=== PATIENT | male | born 1970 | race African-American/Black ===

== ENCOUNTER 2025-01-13 08:34 | Outpatient (CLI) | payer BC, OTHER | END 2025-01-13 08:35 | disposition home or self-care (01) | LOC: CSHSLEEP 08:34 | PROVIDERS: ATTEND Family Medicine | DX: G47.33 Obstructive sleep apnea (adult) (pediatric) (principal); R53.83 Other fatigue; R73.03 Prediabetes; E66.9 Obesity, unspecified; Z68.36 Body mass index [BMI] 36.0-36.9, adult; R06.83 Snoring; I10 Essential (primary) hypertension | CPT/HCPCS: 95800 ==